=== PATIENT | female | born 1985 | race Caucasian/White ===

== ENCOUNTER 2024-10-11 09:19 | Emergency (ER) | payer OTHER ==
[~2024-10-11] VITALS: Ht 162.6 cm; Wt 67.5 kg
[2024-10-11 09:30] VITALS: BP 114/76
[2024-10-11 10:24] LABS: ALBUMIN 4.3 g/dL (3.2-5.0); BILIRUBIN, TOTAL 0.3 mg/dL (0.02-1.3); CREATININE 0.9 mg/dL (0.5-1.0); POTASSIUM 3.5 mmol/l (3.5-5.1); TOTAL PROTEIN 7.4 g/dL (6.3-8.2)
[2024-10-11 10:38] LABS: EOS% 1.7 % (0-8); HEMATOCRIT 34.5 % (37.0-47.0); HEMOGLOBIN 10.9 g/dl (12.0-16.0); IMMATURE GRANULOCYTES 0.2 % (0.0-5.0); LYMPH% 26.9 % (15-41); MEAN CELL VOLUME 81.4 fL CALC (80.0-100.0); MEAN CORPUSCULAR HGB 25.7 pG CALC (26.0-32.0); MEAN CORPUSCULAR HGB CONC 31.6 g/dL CAL (32.0-36.0); MONO% 5.8 % (2-13); NEUT# 3.11 thou/uL (2.00-7.15); NEUT% 64.4 % (42-76); RED BLOOD COUNT 4.24 mill/uL (4.20-5.60); RED CELL DISTRI WIDTH 15.9 % (11.5-15.5)
[2024-10-11] MEDS ORDERED: LIDOcaine HCl 1% (Local Anesth.) 20 ML VIAL IM STA (11:51)
[2024-10-11] MEDS ORDERED: cefTRIAXone SODIUM 1 GM/VIAL SDV IM ONE (11:55)
[2024-10-11] MEDS ORDERED: DOXYCYCLINE100 MG PO (11:57)
[2024-10-11] MEDS ORDERED: DIFLUCAN150 MG PO (11:59)
[2024-10-11 12:02] VITALS: BP 114/76
== END 2024-10-11 12:19 | disposition home or self-care (01) | DRG 759 ==
LOC: ED 09:19
PROVIDERS: Family Medicine
DX: A64 Unspecified sexually transmitted disease (principal); N89.8 Other specified noninflammatory disorders of vagina
CPT/HCPCS: J0696